=== PATIENT | female | born 1930 | race African-American/Black ===

== ENCOUNTER 2021-05-27 13:41 | Emergency (ER) | payer MEDICARE ==
[~2021-05-27] VITALS: Ht 170.2 cm; Wt 52.7 kg
[2021-05-27 13:56] VITALS: BP 146/96
--- NOTE | 2021-05-27 14:01 | PHYS DOC ---
Adult General Chief Complaint Chief Complaint: MECHANICAL FALL HPI HPI Patient is a 89-year-old female presenting with daughter via POV for fall. Onset was approximately 1 hour ago, patient reports she was sitting in a chair and lost her balance when bending over and fell and hit posterior portion of oc ciput. Denies any loss of consciousness, changes in motor or sensory or neuro function. Reports posterior portion of head hit hardwood floor. Extended family member did not see episode but responded to patient immediately after and there was no concerning signs or symptoms such as seizure-like activity, loss of bladder or bowel function etc. Nonetheless, after discussing case with primary care physician, patient was advised to come in for evaluation and CT head imaging as she is currently on Eliquis medication for recent pulmonary embolism and history of atrial fibrillation Review of Systems Review of Systems Fourteen body systems of review of systems have been reviewed. See HPI for pertinent positives and negative responses, other pitts all other systems are negative, non-pertinent or non-contributory Allergies Allergies Allergies Coded Allergies Type Severity Reaction Last Updated Verified No Known Drug Allergies 05/27/21 No Physical Exam Physical Exam Constitutional: Pt is oriented to person, place, and time. Pt appears well-developed and well- nourished. HEENT: Head: Normocephalic and atraumatic. TMs clear, no hemotympanum Conjunctivae and EOM are normal. Pupils are equal, round, and reactive to light. Oropharynx is clear and moist. No hematomas or lacerations or abrasions to face or scalp OP clear, no blood, no malocclusion, dentition intact Nares clear, no nasal septal hematoma Midface stable Neck: C-spine midline nontender, no step-offs Cardiovascular: Normal rate, regular rhythm and normal heart sounds. Pulmonary/Chest: Effort normal and breath sounds normal. No respiratory distress. No wheezes. CTA bilaterally Abdominal: Soft. Bowel sounds are normal. Pt exhibits no distension. There is no tenderness. Musculoskeletal: No bony tenderness to extremities, no deformities, full ROM extremities Chest wall stable Pelvis stable and non-tender No vertebral TTP and spine without stepoffs Neurological: Pt is alert and oriented to person, place, and time. Moving all extremities willfully, able to wiggle all fingers and toes Alert and oriented x 3 Sensation grossly intact Skin: Skin is warm and dry. No abrasions, no lacerations Psychiatric: Behavior is appropriate for situation Current Patient Data Vital Signs Vital Signs Date Time Temp Pulse Resp B/P (MAP) Pulse Ox O2 Delivery O2 Flow Rate FiO2 05/27/21 13:56 98.4 73 18 146/96 (113) 99 Vital Signs Date Time Temp Pulse Resp B/P (MAP) Pulse Ox O2 Delivery O2 Flow Rate FiO2 05/27/21 13:56 98.4 73 18 146/96 (113) 99 EKG EKG [] Radiology/Procedures Radiology/Procedures CT head without contrast: Reason for examination: Fell. On Eloquis. Helical images were obtained through the brain with no contrast administered. Reconstruction was performed in sagittal and coronal planes. Exposure: One or more of the following individualized dose reduction techniques were utilized for this examination: 1. Automated exposure control 2. Adjustment of the mA and/or kV according to patient size 3. Use of iterative reconstruction technique. Ventricular systems are symmetric and not abnormally dilated considering patient's advanced age and mild atrophy. No midline shift is seen. There is no evidence of intracranial hemorrhage, acute infarct, mass or edema. There are some patchy deep white matter changes in the frontal and parietal lobes. There is also a small hypodense lesion probably representing a chronic infarct in the subcortical white matter of the left parietal lobe. Basal ganglia calcifications are seen. No abnormalities of seen at the orbits. The paranasal sinuses and mastoid air cells are clear. No acute skull abnormality is seen. IMPRESSION: Mild atrophy with some chronic microvascular ischemic type changes in the frontal and parietal lobes.. Small hypodense lesion in the left parietal lobe in the subcortical white matter probably representing a chronic infarct. No acute intracranial abnormality evident. Electronically signed by: Kristi Flowers MD (05/27/2021 2:33 PM) [id number] Heart Score C/O Chest Pain: No Risk Factors: Risk Factors: DM, Current or recent (<one month) smoker, HTN, HLP, family history of CAD, obesity. Risk Scores: Risk Factors: DM, Current or recent (<one month) smoker, HTN, HLP, family history of CAD, obesity. Course & Med Decision Making Course & Med Decision Making ABCs unremarkable HPI physical exam and subsequent CT head unremarkable for emergent or surgical issues Patient understands this might be an acute presentation more concerning pathology and so, close observation by family members and close outpatient PCP follow-up advised. Strict return precautions discussed and understood by patient prior to departure Dragon Disclaimer Dragon Disclaimer This electronic medical record was generated, in whole or in part, using a voice recognition dictation system. Departure Departure: Impression: Primary Impression: Fall Disposition: HOME / SELF CARE / HOMELESS Condition: STABLE Referrals: JORGE LYNN MD (PCP) Patient Instructions: Fall Prevention and Home Safety Additional Instructions: You were seen for a head injury after a fall. Your physical exam and subsequent CT head imaging was unremarkable for any emergent or surgical issues. You can take acetaminophen (Tylenol) every 4 hours as needed for pain or headache. Read and follow the attached head injury instructions and return as instructed. Return to the Urgent Care or Emergency Room if you have more than 2 episodes of vomiting, pass out, experience a seizure, seems excessively sleepy, is having trouble talking/walking, isnt acting right, or if you have any other concerns ALANNA TOLBERT DO May 27, 2021 14:01
--- NOTE | 2021-05-27 14:35 | RAD ---
CT head without contrast: Reason for examination: Fell. On Eloquis. Helical images were obtained through the brain with no contrast administered. Reconstruction was perf ormed in sagittal and coronal planes. Exposure: One or more of the following individualized dose reduction techniques were utilized for thi s examination: 1. Automated exposure control 2. Adjustment of the mA and/or kV according to patient size 3. Use of iterative reconstruction technique. Ventricular systems are symmetric and not abnormally dilated considering patient's advanced age and m ild atrophy. No midline shift is seen. There is no evidence of intracranial hemorrhage, acute infarct , mass or edema. There are some patchy deep white matter changes in the frontal and parietal lobes. T here is also a small hypodense lesion probably representing a chronic infarct in the subcortical whit e matter of the left parietal lobe. Basal ganglia calcifications are seen. No abnormalities of seen a t the orbits. The paranasal sinuses and mastoid air cells are clear. No acute skull abnormality is se en. IMPRESSION: Mild atrophy with some chronic microvascular ischemic type changes in the frontal and parietal lobes. . Small hypodense lesion in the left parietal lobe in the subcortical white matter probably representin g a chronic infarct. No acute intracranial abnormality evident. Electronically signed by: Kristi Flowers MD (05/27/2021 2:33 PM) [id number]
== END 2021-05-27 14:54 | disposition home or self-care (01) ==
LOC: ER 13:41
DX: Z04.3 Encounter for examination and observation following other accident (principal); Z86.711 Personal history of pulmonary embolism; I48.91 Unspecified atrial fibrillation; Z79.01 Long term (current) use of anticoagulants; W07.XXXA Fall from chair, initial encounter; Y93.89 Activity, other specified; Y92.89 Other specified places as the place of occurrence of the external cause; Y99.8 Other external cause status
CPT/HCPCS: 70450; 99284